=== PATIENT | female | born 1970 | race Caucasian/White ===

== ENCOUNTER 2019-04-26 06:56 | Day surgery (SDC) | payer OTHER ==
[~2019-04-26] VITALS: Ht 152.4 cm; Wt 82.9 kg
[~2019-04-26 06:56] MED LIST: SODIUM CHLORIDE 0.9% 1,000 ML IV ONE
[2019-04-26] MEDS ORDERED: BENZOCAINE 20% 50 MCG/SPRAY 57 GM TP ONE (06:57)
[2019-04-26] MEDS ORDERED: ALBUTEROL SULFATE 2.5 MG/0.5 ML NEB SOLUTION NEB ONE (06:57)
[2019-04-26] MEDS ORDERED: LIDOCAINE 4% 50 ML SOLUTION TP ONE (06:57)
[2019-04-26] MEDS ORDERED: LIDOCAINE 2% 30 ML JELLY TP ONE (06:57)
[2019-04-26] MEDS ORDERED: FentaNYL CITRATE-PF 100 MCG/2 ML VIAL ONE (07:24)
[2019-04-26] MEDS ORDERED: MIDAZOLAM HCL 2 MG/2 ML VIAL ONE (07:24)
[2019-04-26] MEDS ORDERED: ESCI10TA PO (07:27)
[2019-04-26] MEDS ORDERED: RANI150T7 PO (07:27)
[2019-04-26] MEDS ORDERED: MONT10TA21 PO (07:27)
[2019-04-26] MEDS ORDERED: ALBU8HFA IH (07:27)
[2019-04-26] MEDS ORDERED: GABA-531 PO (07:27)
[2019-04-26] MEDS: SODIUM CHLORIDE 0.9% 1,000 ML IV ONE (07:43)
[2019-04-26] MEDS ORDERED: MethylPREDNISolone SOD SUCC 125 MG/2 ML VIAL ONE (09:29)
[2019-04-26] MEDS: MethylPREDNISolone SOD SUCC 125 MG/2 ML VIAL IVP ONE (09:31)
[2019-04-26] MEDS ORDERED: OXYGEN THERAPY IH SCH (20:00)
== END 2019-04-26 10:50 | disposition home or self-care (01) ==
LOC: SURGERY 06:56
PROVIDERS: ATTEND Internal Medicine Critical Care Medicine
DX: J38.4 Edema of larynx (principal); B37.0 Candidal stomatitis
CPT/HCPCS: 31623; 31624; 71045; 87015; 87070; 87101; 87205; 87206; 87220; 88108; 88312; J2250; J2930; J3010; J7030